=== PATIENT | female | born 1950 | race Caucasian/White ===

== ENCOUNTER 2021-02-07 06:39 | Inpatient (IN) ==
[~2021-02-07 06:39] MED LIST: *HR* FentaNYL (PF) 100 MCG/2 ML VIAL IVP PRN; *HR* HYDROmorphone PF 0.5 MG/0.5 ML SYRINGE IVP PRN; Ondansetron 4 MG/2 ML VIAL IVP PRN
[2021-02-07] MEDS ORDERED: CeFAZolin Syr 2,000MG/20 ML 2,000 MG/20 ML SYRINGE IVPB ONE (06:58)
[2021-02-07] MEDS ORDERED: Famotidine 20 MG TABLET PO ONE (07:00)
[2021-02-07] MEDS ORDERED: Ringers Solution, Lactated 1,000 ML IVC SCH ×2 (07:00→15:32)
[2021-02-07] MEDS ORDERED: Ipratropium/Albuterol Neb 3 ML IH ONE (07:05)
[2021-02-07] MEDS ORDERED: *HR* OxyCODONE Immed Rel 5 MG TABLET PO ONE (07:12)
[2021-02-07] MEDS ORDERED: Lidocaine HCL 4 ML Topical Solution (Laryng-O-Jet Kit Sterile Pak) TP ONE (07:14)
[2021-02-07] MEDS ORDERED: Heparin 1,000 UNITS/500 mL 500 ML ONE (07:17)
[2021-02-07] MEDS ORDERED: Vancomycin 1,000 MG VIAL ONE (07:18)
[2021-02-07] MEDS ORDERED: *HR* FentaNYL (PF) 100 MCG/2 ML VIAL ONE (07:19)
[2021-02-07] MEDS ORDERED: *HR* Propofol 200 MG/20 ML VIAL IVP ONE (07:19)
[2021-02-07] MEDS ORDERED: Lidocaine -MPF 2% 5 ML VIAL ONE ×2 (07:20→07:27)
[2021-02-07] MEDS ORDERED: *HR* Succinylcholine 200 MG/10 ML VIAL IVP ONE (07:20)
[2021-02-07] MEDS ORDERED: *HR* Midazolam HCl 2 MG/2 ML VIAL ONE (07:20)
[2021-02-07] MEDS ORDERED: *HR* Rocuronium Bromide 50 MG/5 ML VIAL ONE (07:20)
[2021-02-07] MEDS ORDERED: Sugammadex Sodium 200 MG/2 ML VIAL IV ONE (07:20)
[2021-02-07] MEDS ORDERED: Ondansetron 4 MG/2 ML VIAL ONE (07:20)
[2021-02-07] MEDS ORDERED: *HR* HYDROMORPHONE 2 MG/ML VIAL ONE (07:21)
[2021-02-07] MEDS ORDERED: *HR* Phenylephrine 10 MG/ML VIAL ONE (07:26)
[2021-02-07] MEDS ORDERED: *HR* Remifentanil 1 MG VIAL IVP ONE ×2 (07:31→11:31)
[2021-02-07] MEDS ORDERED: Polymyxin B Sulfate 500,000 UNIT, Sodium Chloride IRRigation 1,000 ML IR ONE (07:45)
[2021-02-07] MEDS ORDERED: *HR* Magnesium Sulfate 1 GM/2 ML VIAL ONE (08:12)
[2021-02-07] MEDS ORDERED: *HR* Methadone 5 MG TABLET PO ONE (08:14)
[2021-02-07] MEDS ORDERED: Aminophylline 125 MG/30 ML SYRINGE IVP ONE (08:22)
[2021-02-07] MEDS ORDERED: AMINOPHYLLINE IVPB ONE (09:30)
[2021-02-07] MEDS ORDERED: SODIUM CHLORIDE 0.9% IVPB ONE (09:30)
[2021-02-07] MEDS ORDERED: *HR* Labetalol 20 MG/4 ML SYRINGE IVP ONE (09:56)
[2021-02-07] MEDS ORDERED: Acetaminophen 325 MG TABLET PO PRN (15:32)
[2021-02-07] MEDS ORDERED: Ondansetron 4 MG/2 ML VIAL IVP PRN (15:32)
[2021-02-07] MEDS ORDERED: ALPRAZolam 0.25 MG TABLET PO PRN (15:32)
[2021-02-07] MEDS ORDERED: Naloxone 0.4 MG/ML INJ IVP PRN (15:32)
[2021-02-07] MEDS ORDERED: methylPREDNISolone 4 MG TABLET PO SCH (18:00)
[2021-02-07] MEDS: *HR* OxyCODONE Immed Rel 5 MG TABLET PO PRN ×2 (18:17→23:39)
[2021-02-07] MEDS: PrednisoLONE Acetate 1% Opth 5 ML BOTTLE LEFT EYE SCH ×2 (18:18→20:16)
[2021-02-07] MEDS: Moxifloxacin OPTH Drops 3 ML BOTTLE LEFT EYE SCH ×2 (18:18→20:17)
[2021-02-07] MEDS: CeFAZolin 2 GM/120 ML BAG IVPB SCH (18:24)
[2021-02-07] MEDS: Gabapentin 100 MG CAPSULE PO SCH (20:19)
[2021-02-07] MEDS: rOPINIRole 1 MG TABLET PO SCH (20:24)
[2021-02-07] MEDS: Budesonide/Formoterol 160/4.5 1 PUFF INH IH SCH (20:47)
[2021-02-08] MEDS: CeFAZolin 2 GM/120 ML BAG IVPB SCH (01:11)
[2021-02-08] MEDS: *HR* OxyCODONE Immed Rel 5 MG TABLET PO PRN ×4 (04:43→21:22)
[2021-02-08] MEDS: *HR* HYDROcodone/Acet 5/325 mg TABLET PO PRN (08:25)
[2021-02-08] MEDS: FLUoxetine 20 MG CAPSULE PO SCH (08:26)
[2021-02-08] MEDS: ARIPiprazole 5 MG TABLET PO SCH (08:26)
[2021-02-08] MEDS: Gabapentin 100 MG CAPSULE PO SCH ×3 (08:26→21:22)
[2021-02-08] MEDS: Moxifloxacin OPTH Drops 3 ML BOTTLE LEFT EYE SCH ×4 (08:28→21:23)
[2021-02-08] MEDS: PrednisoLONE Acetate 1% Opth 5 ML BOTTLE LEFT EYE SCH ×4 (08:28→21:23)
[2021-02-08] MEDS ORDERED: FLUoxetine 20 MG CAPSULE PO SCH (09:00)
[2021-02-08] MEDS: Tiotropium 10 INH DOSE IH SCH (11:02)
[2021-02-08] MEDS: Budesonide/Formoterol 160/4.5 1 PUFF INH IH SCH ×2 (11:03→21:20)
[2021-02-08] MEDS: rOPINIRole 1 MG TABLET PO SCH (21:22)
[2021-02-09 01:02] LABS: ABG Base Excess 1 mEq/L (-2 to 3); ABG HCO3 26 mEq/L (21-27); ABG Oxygen Saturation 86 % (95-98); ABG PCO2 43 mmHg (35-45); ABG PO2 51 mmHg (85-104); ABG TCO2 28 mEq/L (20-26)
[2021-02-09 02:37] LABS: Basophils % 0.1 %; Hematocrit 33.4 % (35.3-44.9); Hemoglobin 10.5 g/dL (11.5-15.4); Immature Granulocytes % 0.5 % (0-4); Lymphocytes % 19.7 %; Mean Corpuscular HGB Conc 31.4 g/dL (31.6-35.5); Mean Corpuscular Hemoglobin 32.1 pg (28.0-33.3); Mean Corpuscular Volume 102.1 fL (83.0-100.0); Monocytes # 1.9 K/mcL (0.0-1.3); Monocytes % 12.4 %; Neutrophils # 10.3 K/mcL (1.6-8.9); Platelet Count 277 K/mcL (140-400); Red Blood Count 3.27 M/mcL (3.82-4.97); Red Cell Distribution Width 12.8 % (11.5-14.5); Segmented Neutrophils % 67.3 %; White Blood Count 15.3 K/mcL (4.3-11.1)
[2021-02-09 02:52] LABS: BUN/Creatinine Ratio 18 (6-26); Blood Urea Nitrogen 12 mg/dL (8-23); Calcium 8.5 mg/dL (8.6-10.3); Carbon Dioxide 28 mEq/L (23-29); Chloride 96 mEq/L (98-107); Glucose 103 mg/dL (70-105); Osmolality,Calculated 272 (280-300); Potassium 3.6 mEq/L (3.5-5.1); Sodium 131 mEq/L (136-145); eGFR For African Americans > 60 (> 60); eGFR For Non-African Americans > 60 (> 60)
[2021-02-09] MEDS: Ipratropium/Albuterol Neb 3 ML IH SCH ×5 (02:57→21:43)
[2021-02-09] MEDS: MethylPREDNISolone 40 MG/ML VIAL IVP SCH ×4 (02:57→23:36)
[2021-02-09] MEDS: Azithromycin 250 MG TABLET PO SCH (02:58)
[2021-02-09] MEDS ORDERED: Isovue-370 500 ML BOTTLE IVP ONE (03:29)
[2021-02-09] MEDS ORDERED: Ipratropium/Albuterol Neb 3 ML IH SCH (04:00)
[2021-02-09] MEDS: cefTRIAXone 1,000 MG in Water for inj. (sterile) 10 ML IVP SCH (05:26)
[2021-02-09] MEDS: *HR* OxyCODONE Immed Rel 5 MG TABLET PO PRN ×3 (06:42→19:52)
[2021-02-09] MEDS ORDERED: MethylPREDNISolone 40 MG/ML VIAL IVP SCH (08:00)
[2021-02-09] MEDS: PrednisoLONE Acetate 1% Opth 5 ML BOTTLE LEFT EYE SCH ×4 (08:57→19:44)
[2021-02-09] MEDS: Moxifloxacin OPTH Drops 3 ML BOTTLE LEFT EYE SCH ×4 (08:57→19:44)
[2021-02-09] MEDS ORDERED: Azithromycin 250 MG TABLET PO SCH (09:00)
[2021-02-09] MEDS ORDERED: cefTRIAXone 1,000 MG in Water for inj. (sterile) 10 ML IVP SCH (09:00)
[2021-02-09] MEDS: ARIPiprazole 5 MG TABLET PO SCH (09:01)
[2021-02-09] MEDS: Gabapentin 100 MG CAPSULE PO SCH ×3 (09:02→19:43)
[2021-02-09] MEDS: FLUoxetine 20 MG CAPSULE PO SCH (09:02)
[2021-02-09] MEDS: Budesonide/Formoterol 160/4.5 1 PUFF INH IH SCH ×2 (10:58→20:28)
[2021-02-09] MEDS: Tiotropium 10 INH DOSE IH SCH (10:58)
[2021-02-09] MEDS: rOPINIRole 1 MG TABLET PO SCH (19:43)
[2021-02-09] MEDS: *HR* HYDROcodone/Acet 5/325 mg TABLET PO PRN (23:43)
[2021-02-10] MEDS: Ipratropium/Albuterol Neb 3 ML IH SCH ×4 (04:37→20:26)
[2021-02-10 05:04] LABS: Basophils % 0.1 %; Hematocrit 31.8 % (35.3-44.9); Hemoglobin 9.9 g/dL (11.5-15.4); Immature Granulocytes % 0.7 % (0-4); Lymphocytes # 0.7 K/mcL (0.6-4.6); Lymphocytes % 5.1 %; Mean Corpuscular HGB Conc 31.1 g/dL (31.6-35.5); Mean Corpuscular Hemoglobin 31.4 pg (28.0-33.3); Mean Platelet Volume 9.6 fL (9.4-12.4); Monocytes # 0.9 K/mcL (0.0-1.3); Monocytes % 6.1 %; Neutrophils # 12.6 K/mcL (1.6-8.9); Platelet Count 279 K/mcL (140-400); Red Blood Count 3.15 M/mcL (3.82-4.97); Red Cell Distribution Width 12.6 % (11.5-14.5); White Blood Count 14.3 K/mcL (4.3-11.1)
[2021-02-10 05:23] LABS: BUN/Creatinine Ratio 28 (6-26); Blood Urea Nitrogen 12 mg/dL (8-23); Calcium 9.1 mg/dL (8.6-10.3); Carbon Dioxide 32 mEq/L (23-29); Chloride 98 mEq/L (98-107); Glucose 158 mg/dL (70-105); Osmolality,Calculated 283 (280-300); Sodium 135 mEq/L (136-145); eGFR For African Americans > 60 (> 60); eGFR For Non-African Americans > 60 (> 60)
[2021-02-10] MEDS: Budesonide/Formoterol 160/4.5 1 PUFF INH IH SCH ×2 (07:49→20:25)
[2021-02-10] MEDS: Tiotropium 10 INH DOSE IH SCH (07:49)
[2021-02-10] MEDS: ARIPiprazole 5 MG TABLET PO SCH (08:18)
[2021-02-10] MEDS: FLUoxetine 20 MG CAPSULE PO SCH (08:18)
[2021-02-10] MEDS: Azithromycin 250 MG TABLET PO SCH (08:18)
[2021-02-10] MEDS: Gabapentin 100 MG CAPSULE PO SCH ×3 (08:18→19:58)
[2021-02-10] MEDS: cefTRIAXone 1,000 MG in Water for inj. (sterile) 10 ML IVP SCH (08:19)
[2021-02-10] MEDS: MethylPREDNISolone 40 MG/ML VIAL IVP SCH (08:20)
[2021-02-10] MEDS: *HR* HYDROcodone/Acet 5/325 mg TABLET PO PRN (08:26)
[2021-02-10] MEDS: PrednisoLONE Acetate 1% Opth 5 ML BOTTLE LEFT EYE SCH ×4 (11:16→19:58)
[2021-02-10] MEDS: Moxifloxacin OPTH Drops 3 ML BOTTLE LEFT EYE SCH ×4 (11:17→19:58)
[2021-02-10] MEDS: *HR* OxyCODONE Immed Rel 5 MG TABLET PO PRN ×2 (12:42→17:55)
[2021-02-10] MEDS: rOPINIRole 1 MG TABLET PO SCH (19:58)
[2021-02-11] MEDS: *HR* OxyCODONE Immed Rel 5 MG TABLET PO PRN ×4 (01:02→22:22)
[2021-02-11] MEDS: Ipratropium/Albuterol Neb 3 ML IH SCH ×4 (03:20→20:23)
[2021-02-11 04:43] LABS: Basophils % 0.1 %; Eosinophils % 0.1 %; Hemoglobin 9.9 g/dL (11.5-15.4); Immature Granulocytes % 0.6 % (0-4); Lymphocytes # 2.3 K/mcL (0.6-4.6); Lymphocytes % 14.5 %; Mean Corpuscular HGB Conc 31.9 g/dL (31.6-35.5); Mean Corpuscular Hemoglobin 32.6 pg (28.0-33.3); Mean Platelet Volume 9.5 fL (9.4-12.4); Monocytes # 1.7 K/mcL (0.0-1.3); Monocytes % 10.6 %; Neutrophils # 11.8 K/mcL (1.6-8.9); Platelet Count 368 K/mcL (140-400); Red Blood Count 3.04 M/mcL (3.82-4.97); Red Cell Distribution Width 12.7 % (11.5-14.5); Segmented Neutrophils % 74.1 %; White Blood Count 15.9 K/mcL (4.3-11.1)
[2021-02-11 05:02] LABS: BUN/Creatinine Ratio 27 (6-26); Blood Urea Nitrogen 14 mg/dL (8-23); Calcium 9.3 mg/dL (8.6-10.3); Carbon Dioxide 34 mEq/L (23-29); Chloride 97 mEq/L (98-107); Glucose 95 mg/dL (70-105); Osmolality,Calculated 282 (280-300); Potassium 3.7 mEq/L (3.5-5.1); Sodium 136 mEq/L (136-145); eGFR For African Americans > 60 (> 60); eGFR For Non-African Americans > 60 (> 60)
[2021-02-11] MEDS: Budesonide/Formoterol 160/4.5 1 PUFF INH IH SCH ×2 (08:05→20:23)
[2021-02-11] MEDS: Tiotropium 10 INH DOSE IH SCH (08:06)
[2021-02-11] MEDS: predniSONE 20 MG TABLET PO SCH (09:21)
[2021-02-11] MEDS: ARIPiprazole 5 MG TABLET PO SCH (09:22)
[2021-02-11] MEDS: Azithromycin 250 MG TABLET PO SCH (09:22)
[2021-02-11] MEDS: PrednisoLONE Acetate 1% Opth 5 ML BOTTLE LEFT EYE SCH ×4 (09:22→19:48)
[2021-02-11] MEDS: Gabapentin 100 MG CAPSULE PO SCH ×3 (09:22→19:38)
[2021-02-11] MEDS: FLUoxetine 20 MG CAPSULE PO SCH (09:22)
[2021-02-11] MEDS: cefTRIAXone 1,000 MG in Water for inj. (sterile) 10 ML IVP SCH (09:23)
[2021-02-11] MEDS: Moxifloxacin OPTH Drops 3 ML BOTTLE LEFT EYE SCH ×4 (09:23→19:48)
[2021-02-11] MEDS: Roflumilast [Daliresp] 500 MCG Tablet PO SCH (09:24)
[2021-02-11] MEDS: Acetylcysteine 10% 2 ML INHSOL IH SCH ×2 (15:20→20:23)
[2021-02-11] MEDS: rOPINIRole 1 MG TABLET PO SCH (19:37)
[2021-02-12] MEDS: Ipratropium/Albuterol Neb 3 ML IH SCH ×2 (04:14→07:26)
[2021-02-12 04:47] LABS: Eosinophils % 0.2 %; Hematocrit 32.3 % (35.3-44.9); Hemoglobin 9.9 g/dL (11.5-15.4); Immature Granulocytes % 0.4 % (0-4); Lymphocytes # 1.8 K/mcL (0.6-4.6); Lymphocytes % 16.9 %; Mean Corpuscular HGB Conc 30.7 g/dL (31.6-35.5); Mean Corpuscular Hemoglobin 31.4 pg (28.0-33.3); Mean Corpuscular Volume 102.5 fL (83.0-100.0); Mean Platelet Volume 8.9 fL (9.4-12.4); Monocytes # 1.2 K/mcL (0.0-1.3); Monocytes % 10.8 %; Neutrophils # 7.8 K/mcL (1.6-8.9); Platelet Count 352 K/mcL (140-400); Red Blood Count 3.15 M/mcL (3.82-4.97); Red Cell Distribution Width 12.7 % (11.5-14.5); Segmented Neutrophils % 71.7 %; White Blood Count 10.8 K/mcL (4.3-11.1)
[2021-02-12 05:08] LABS: BUN/Creatinine Ratio 26 (6-26); Blood Urea Nitrogen 13 mg/dL (8-23); Calcium 9.1 mg/dL (8.6-10.3); Carbon Dioxide 33 mEq/L (23-29); Chloride 99 mEq/L (98-107); Glucose 95 mg/dL (70-105); Osmolality,Calculated 288 (280-300); Potassium 3.6 mEq/L (3.5-5.1); Sodium 139 mEq/L (136-145); eGFR For African Americans > 60 (> 60); eGFR For Non-African Americans > 60 (> 60)
[2021-02-12 06:49] VITALS: BP 143/78; PULSE 82; TEMP 97.9
[2021-02-12] MEDS: Acetylcysteine 10% 2 ML INHSOL IH SCH (07:26)
[2021-02-12] MEDS: Budesonide/Formoterol 160/4.5 1 PUFF INH IH SCH (07:27)
[2021-02-12] MEDS: Tiotropium 10 INH DOSE IH SCH (07:27)
[2021-02-12 07:30] VITALS: O2SAT 97
[2021-02-12] MEDS: FLUoxetine 20 MG CAPSULE PO SCH (07:57)
[2021-02-12] MEDS: Gabapentin 100 MG CAPSULE PO SCH (07:57)
[2021-02-12] MEDS: cefTRIAXone 1,000 MG in Water for inj. (sterile) 10 ML IVP SCH ×2 (07:57→09:47)
[2021-02-12] MEDS: Azithromycin 250 MG TABLET PO SCH (07:58)
[2021-02-12] MEDS: ARIPiprazole 5 MG TABLET PO SCH (07:58)
[2021-02-12] MEDS: predniSONE 20 MG TABLET PO SCH (07:58)
[2021-02-12] MEDS: Moxifloxacin OPTH Drops 3 ML BOTTLE LEFT EYE SCH ×3 (07:58→12:17)
[2021-02-12] MEDS: PrednisoLONE Acetate 1% Opth 5 ML BOTTLE LEFT EYE SCH ×2 (07:59→12:17)
[2021-02-12] MEDS: *HR* HYDROcodone/Acet 5/325 mg TABLET PO PRN (09:15)
[2021-02-12] MEDS ORDERED: Cefdinir 300 MG CAPSULE PO SCH (09:45)
[2021-02-12] MEDS: Roflumilast [Daliresp] 500 MCG Tablet PO SCH (12:16)
== END 2021-02-12 13:04 | disposition home health service (06) | DRG 981 ==
LOC: 4WAOSI 06:39 → SDCAOSI 06:39 → 4WAOSI 14:07 → SUATTDRO 02-08 15:23
PROVIDERS: ADMIT Orthopaedic Surgery Orthopaedic Surgery of the Spine; ATTEND General Practice